=== PATIENT | female | born 1965 | race Caucasian/White ===

== ENCOUNTER 2021-09-30 16:20 | Emergency (ER) | payer OTHER ==
[~2021-09-30] VITALS: Ht 172.7 cm; Wt 66.7 kg
[~2021-09-30 16:20] MED LIST: NORFLEX100 MG PO
== END 2021-09-30 21:15 | disposition home or self-care (01) ==
LOC: ER 16:20
DX: G43.911 Migraine, unspecified, intractable, with status migrainosus (principal); H53.19 Other subjective visual disturbances